=== PATIENT | female | born 1955 | race Caucasian/White ===

== ENCOUNTER 2018-01-04 08:35 | Emergency (ER) | payer BC ==
[2018-01-04 08:55] VITALS: BP 136/90; PULSE 111; TEMP 98.3; BMI 19.2
[2018-01-04] MEDS ORDERED: DIPHTH,PERTUSS(ACELL),TET 0.5 ML DISP.SYRIN IM ONE (09:01)
--- NOTE | 2018-01-04 09:46 | PDOC ---
History of Present Illness - General Chief Complaint: Laceration Stated Complaint: LACERATION Time Seen by Provider: 01/04/18 08:49 History Source: Patient Exam Limitations: No Limitations - History of Present Illness Initial Comments: 01/04/18 09:40 62-year-old female with history of Crohn's disease presents with left collins laceration sustained around 1 AM when she tripped on her step and struck her collins. There was no other injury, bled temporarily from the area and presents now for laceration evaluation. No motor or sensory deficits, denies any cardiopulmonary complaints or lightheadedness or loss of consciousness, last tetanus was 2011. Has history of C. difficile from antibiotics, treated and resolved. Past History - Past Medical History Allergies/Adverse Reactions: Allergies Allergy/AdvReac Type Severity Reaction Status Date / Time No Known Allergies Allergy Verified 01/04/18 08:46 Home Medications: Ambulatory Orders Magnesium Amino Acid Chelate [Magnesium] 100 mg PO DAILY 01/04/18 COPD: No GI Disorders: Yes (ULCERATIVE COLITIS) - Suicide/Smoking/Psychosocial Hx Smoking History: Never smoked Hx Alcohol Use: No Drug/Substance Use Hx: No Substance Use Type: None Review of Systems - Review of Systems Cardiac (ROS): No: Edema, Syncope Integumentary: Yes: See HPI Neurological: No: Tingling, Weakness *Physical Exam - Vital Signs Last Vital Signs Temp Pulse Resp BP Pulse Ox 98.3 F 111 H 16 136/90 100 01/04/18 08:45 01/04/18 08:45 01/04/18 08:45 01/04/18 08:45 01/04/18 08:45 - Physical Exam Comments: 01/04/18 09:42 Vital signs noted, heart rate 90 on my examination, she is quite anxious but eventually reassured GENERAL: The patient is awake, alert, and fully oriented, in no acute distress. HEAD: Normal with no signs of trauma. EYES: Pupils equal, round and reactive to light, extraocular movements intact, sclera anicteric, conjunctiva clear. EXTREMITIES: Normal range of motion, no edema. No focal bony tenderness or deformity, neurovascularly intact distally. NEUROLOGICAL: Normal speech, normal gait. PSYCH: Normal mood, normal affect. SKIN: Vertical linear laceration along the middle portion of the left collins, deep through dermis for approximately 5 cm, with very superficial avulsion 1 cm above and below. No deep tissue injury, no foreign body, there is a 1-2 mm rim of necrosis/avulsed tissue along the lateral aspect of the laceration. Medical Decision Making - Medical Decision Making 01/04/18 09:45 62-year-old female with mechanical trip and fall with left collins laceration, neurovascularly intact. No underlying bony injury. Tetanus updated LACERATION REPAIR: (pt opted for sutures instead of amanda) The skin was prepped with Saline. 2% lidocaine was injected subcutaneously for local anesthesia. Normal saline lavage, high pressure, high volume was performed. 3.0 nylon, simple interrupted sutures, x 5 were placed. Bacitracin and dry sterile dressing were applied. Patient was advised regarding signs and symptoms of infection that would indicate a need to see the doctor immediately, as well as instructions for suture removal. Given history, we'll avoid any antibiotic prophylaxis Patient's son is a surgeon and will check on the wound, return for suture removal in 10 days. *DC/Admit/Observation/Transfer Diagnosis at time of Disposition: Laceration - Discharge Dispostion Disposition: HOME Condition at time of disposition: Improved - Referrals Referrals: Jaelyn Jean Baptiste [Primary Care Provider] - - Patient Instructions Printed Discharge Instructions: DI for Laceration Repair Additional Instructions: Activity as tolerated. Stay hydrated. Tylenol 1000 mg every 8 hours as needed for pain. Maintain current dressing for 48 hours and keep the wound completely clean and dry. After that, bacitracin dressing changes twice daily, avoid soaking or scrubbing the wound. Your tetanus vaccination was updated today, 01/04/18. Continue your medications as previously prescribed by your physician. You should have the sutures removed in 10 days. You can return to the emergency department for this. Return to the emergency department for any new or concerning symptoms, particularly redness or swelling, pus or pain or bleeding, fevers or chills, discoloration. - Post Discharge Activity
== END 2018-01-04 09:54 | disposition home or self-care (01) ==
LOC: FER 08:35
PROC: 0HQLXZZ Repair Left Lower Leg Skin, External Approach (ICD-10-PCS; principal; 2018-01-04)
PROC: 3E0234Z Introduction of Serum, Toxoid and Vaccine into Muscle, Percutaneous Approach (ICD-10-PCS; 2018-01-04)
DX: S81.812A Laceration without foreign body, left lower leg, initial encounter (principal); X58.XXXA Exposure to other specified factors, initial encounter; Y93.89 Activity, other specified; Y92.9 Unspecified place or not applicable
CPT/HCPCS: 90715; 99282-25